=== PATIENT | male | born 1950 | race Caucasian/White ===

== ENCOUNTER 2017-02-10 10:30 | Emergency (ER) | payer OTHER, MEDICARE ==
[2017-02-10 10:35] VITALS: O2SAT 96
--- NOTE | 2017-02-10 12:22 | EDPHY ---
H & P Smoking Status: Never smoked Time Seen by Provider: 02/10/17 11:02 HPI/ROS: CHIEF COMPLAINT: Right leg swelling HISTORY OF PRESENT ILLNESS: 66-year-old male presents to the emergency department by private vehicle with concerns about swelling to his right leg over last few days. 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 He has a history of factor 5 Leiden. He takes Xarelto 20 mg only when he travels long distance. He has not had a DVT in 8 years. He does take natural supplements daily. He denies chest pain or difficulty breathing. It does not feel swollen to him but just more pain associated in the right calf. He denies pain in his groin. Denies pain in the right thigh. Denies symptoms in the left lower extremity. Denies any pleuritic chest pain. No reported trauma. REVIEW OF SYSTEMS: Constitutional: No fever, no chills. Eyes: No double or blurry vision. ENT: No sore throat. Respiratory: No cough, no shortness of breath. Cardiac: No chest pain. Gastrointestinal: No abdominal pain, vomiting or diarrhea. Genitourinary: No dysuria. Musculoskeletal: No neck or back pain. Skin: No rashes. Neurological: No headache. (lAicia García) Past Medical/Surgical History: Factor 5 Leiden, DVT lower extremities (Alicia García) Social History: from [place] (Alicia García) Physical Exam: General Appearance: Alert, no distress. 143/94, 96% on room air Eyes: Pupils equal and round. Extraocular motions are all intact. ENT: Mouth: Mucous membranes moist. Respiratory: No wheezing, rhonchi, or rales, lungs are clear to auscultation. Cardiovascular: Regular rate and rhythm. Gastrointestinal: Abdomen is soft and nontender, no masses, no rebound or guarding, bowel sounds normal. Neurological: Alert and oriented x 3, cranial nerves II through XII grossly intact Skin: Warm and dry, no rashes. Musculoskeletal: Nontender to palpate along the cervical, thoracic or lumbar spine. Neck is supple. Extremities: Full range of motion. Patient has minimal swelling noted to the right lower extremity. He does have small painful palpable lump to the distal medial aspect of his right lower leg. This could be a varicosity. There is no redness or warmth or signs of infection. Full range of motion of the lower extremities. His calf is otherwise nontender. Right thigh is nontender. Normal sensation to light touch with normal 2 point discrimination. Strong dorsalis pedis pulse on the dorsal aspect of the right foot. Psychiatric: Patient is oriented X 3, there is no agitation. (Alicia García) Constitutional: Initial Vital Signs Temperature (C) 36.4 C 02/10/17 10:33 Heart Rate 84 02/10/17 10:33 Respiratory Rate 18 02/10/17 10:33 Blood Pressure 143/94 H 02/10/17 10:33 O2 Sat (%) 96 02/10/17 10:33 O2 Delivery Mode Room Air Allergies/Adverse Reactions: No Known Allergies Allergy (Unverified 02/10/17 10:32) Home Medications: Medication Instructions Recorded NK [No Known Home Meds] 02/10/17 Medical Decision Making ED Course/Re-evaluation: 66-year-old male presents to the emergency department with right calf pain and concerns about recurring DVT. Ultrasound reveals no evidence of acute DVT. There is evidence of acute superficial thrombophlebitis within a varicose vein. 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 Patient was reassured. He was encouraged to apply warm compresses. Activity as tolerated. He was instructed to follow up with his primary care provider in [place] if he developed worsening swelling, increasing pain, or any other concerns. He was comfortable with this plan. (Alicia García) Differential Diagnosis: Including but not limited to superficial thrombophlebitis, varicose vein, DVT, cellulitis (Alicia García) Other Provider: The patient was evaluated and managed by the physician front end assistant. I have reviewed this chart and I agree with the findings and plan of care as documented , as indicated by my signature. I am the secondary supervising physician. ( Meghan Vilchis) Departure - Departure Disposition: Home, Routine, Self-Care Clinical Impression: Superficial thrombophlebitis of right leg, Varicose vein of leg Condition: Good Instructions: Varicose Veins (ED), Superficial Thrombophlebitis (ED) Additional Instructions: You do not have any evidence of new deep vein thrombosis on ultrasound of your right lower extremity today. Warm compresses to the localized area of swelling and pain to the right lower extremity. Return to the emergency department if you developed worsening swelling in her lower leg, increasing pain, shortness of breath, chest pain, or if you feel worse in any way. Referrals: MICHELLE SIERRA [Other] - As per Instructions
[2017-02-10 13:29] VITALS: BP 133/89; PULSE 80; RESP 14; TEMP 97.9
== END 2017-02-10 13:28 | disposition home or self-care (01) ==
DX: I80.01 Phlebitis and thrombophlebitis of superficial vessels of right lower extremity (principal); I83.91 Asymptomatic varicose veins of right lower extremity